=== PATIENT | male | born 2000 | race Caucasian/White ===

== ENCOUNTER 2018-02-03 23:02 | Emergency (ER) | payer OTHER ==
[~2018-02-03] VITALS: Ht 177.8 cm; Wt 68.0 kg
--- NOTE | 2018-02-03 23:36 | ED UPPER/LOWER EXTREMITY COMPL ---
History of Present Illness General Chief Complaint: Shoulder Injury Stated Complaint: ?L SHOULDER/COLLAR BONE INJURY Source: patient Exam Limitations: no limitations Vital Signs & Intake/Output Vital Signs & Intake/Output Vital Signs Date Time Temp Pulse Resp B/P B/P Pulse O2 O2 Flow FiO2 Mean Ox Delivery Rate 02/04 0009 98.8 86 18 132/89 97 Room Air 02/03 2308 99.0 84 18 145/97 96 Room Air ED Intake and Output 02/04 0000 02/03 1200 Intake Total Output Total Balance Patient 150 lb Weight Weight Reported by Patient Measurement Method Allergies Coded Allergies: No Known Allergies (02/03/18) Reconcile Medications Oxycodone HCl/Acetaminophen (Percocet 5-325 MG Tablet) 5 MG-325 MG TABLET 1 TAB PO 4XDP PRN PAIN FOUR...[id number] Triage Note: PT FROM HOME C/O FALL ON SKATEBOARD AROUND 2144. PT DENIES HEADSTRIKE OR LOC. PT STATES LANDED ON LT SIDE. PT UNABLE TO MOVE LT SHOULDER, PT HAS ROM IN FINGERS +FEELING. PT STATES AT THE TIME OF ACCIDENT DIZZINESS, BLURRY VISION. DENIES N/V. PT AMBULATED TO [facility] IMM[facility]. Triage Nurses Notes Reviewed? yes Onset: Abrupt Duration: hour(s): Timing: single episode today Severity: moderate Pain/Injury Location: Left: Shoulder. Method of Injury: fall Modifying Factors: Improves With: rest. Worsens With: movement. Associated Symptoms: left collar bone pain HPI: 17 yo gentleman presents with left clavicle pain. He states that 3 hours ago, he fell and landed on his left shoulder while skateboarding. "I just hit a crack and went over." He was not wearing a helmet, but did not hit his head or lose consciousness. Past History Travel History Traveled to [place] past 21 day No Medical History Any Pertinent Medical History? see below for history Neurological: NONE EENT: NONE Cardiovascular: NONE Respiratory: NONE Gastrointestinal: NONE Hepatic: NONE Renal: NONE Musculoskeletal: NONE Psychiatric: NONE Endocrine: NONE Surgical History Surgical History: none Psychosocial History What is your primary language Moroccan Tobacco Use: Never used Family History Hx Contributory? No Review of Systems Review of Systems Constitutional: Denies: see HPI. Physical Exam Physical Exam General Appearance: mild distress Comments: Review of Systems - except as otherwise noted in HPI Review of Systems Constitutional:no symptoms. EENTM:no symptoms. Respiratory:no symptoms. Cardiovascular:no symptoms. GI:no symptoms. Genitourinary:no symptoms. Musculoskeletal:no symptoms. Skin:no symptoms. Neurological/Psychological:no symptoms. Hematologic/Endocrine:no symptoms. Immunologic/Allergic:no symptoms. All Other Systems: Reviewed and Negative Physical Exam Physical Exam General Appearance: well developed/nourished, no apparent distress Head: atraumatic, normal appearance Eyes: Bilateral: normal appearance. Ears, Nose, Throat: normal pharynx, normal ENT inspection Neck: normal inspection, supple, full range of motion Respiratory: normal breath sounds, chest non-tender, no respiratory distress, quiet respiration, lungs clear Cardiovascular: regular rate/rhythm Gastrointestinal: normal bowel sounds, soft, non-tender, no organomegaly Back: normal inspection, normal range of motion Extremities: normal capillary refill, no edema, focal tenderness at left midshaft clavicle region, ROM normal in shoulder, but compromised by clavicle discomfort. Neurologic/Psych: no motor/sensory deficits, awake, alert, oriented x 3 Skin: intact, normal color, warm/dry Progress Differential Diagnosis: contusion, dislocation, fracture Plan of Care: Orders Procedure Date/time Status Durable Medical Equipment 02/04 2340 Active Diagnostic Imaging: Viewed by Me: Radiology Read. Discussed w/RAD: Radiology Read. Radiology Impression: PATIENT: SHERWIN BEJARANO PRESENT AGE: 17 PATIENT ACCOUNT NO: [id number] : 98 LOCATION: [facility] ORDERING PHYSICIAN: Juan May MD SERVICE DATE: 02/03/18 EXAM TYPE: RAD - XRY-CLAVICLE, LEFT; XRY-SHOULDER COMPLETE-LEFT EXAMINATION: 1. LEFT CLAVICLE. 2. LEFT SHOULDER. CLINICAL INFORMATION: Pain. Trauma. COMPARISON: None TECHNIQUE: 1. Left clavicle. 2 views 2. Left shoulder. 3 views FINDINGS: 1. Left clavicle. There is an angulated and slightly displaced fracture of the midshaft of the clavicle. Distal fracture fragment is angulated inferiorly. 2. Left shoulder. The acromioclavicular joint and the glenohumeral joint are normal. There is no fracture of the humerus or the scapula. No fracture of the visualized ribs. The visualized left lung is normally aerated. IMPRESSION: 1. Left clavicle. Fracture midshaft left clavicle. 2. Left shoulder. Normal. DICTATED BY: Alexander Ren MD DATE/TIME DICTATED:02/03/182328 [employer] :WOLF DATE/TIME TRANSCRIBED:02/03/182328 CONFIDENTIAL, DO NOT COPY WITHOUT APPROPRIATE AUTHORIZATION. <Electronically signed in Other Vendor System> SIGNED BY: Alexander Ren MD 02/03/18 7824 Departure Departure Disposition: HOME OR SELF CARE Condition: Stable Clinical Impression Primary Impression: Closed left clavicular fracture Referrals: Patient Has No Primary Care Dr (PCP/Family) Departure Forms: Customer Survey General Discharge Information Prescriptions: Current Visit Scripts Oxycodone HCl/Acetaminophen (Percocet 5-325 MG Tablet) 1 TAB PO 4XDP PRN PAIN #4 TAB FOUR...[id number] Comments 02/03/18, 23:53... discussed at length... he did not injure his head. Sling placed on shoulder by RN... safe for discharge with close follow up.
[2018-02-03] MEDS ORDERED: PERCOCET 5-3251 EACH PO ×2 (23:48→23:50)
[2018-02-04 00:09] VITALS: BP 132/89
== END 2018-02-04 00:11 ==
LOC: ERH 23:02
DX: S42.022A Displaced fracture of shaft of left clavicle, initial encounter for closed fracture (principal); V00.131A Fall from skateboard, initial encounter; Y93.51 Activity, roller skating (inline) and skateboarding
CPT/HCPCS: 73000-LT; 73030-LT